=== PATIENT | male | born 1990 | race Caucasian/White ===

== ENCOUNTER 2017-12-19 06:25 | Emergency (ER) | payer OTHER ==
[~2017-12-19] VITALS: Ht 170.2 cm; Wt 66.1 kg
[2017-12-19 06:30] VITALS: BP 122/73; PULSE 56; RESP 16; TEMP 97.6; O2SAT 100
[2017-12-19 07:03] VITALS: BP 121/79; PULSE 57; RESP 16; TEMP 98; O2SAT 100
[2017-12-19 07:08] LABS: AUTOMATED NEUTROPHIL # 3.1 TH/MM3 (1.8-7.7); BASOPHIL # 0.1 TH/MM3 (0-0.2); BASOPHIL % 1.4 % (0.0-2.0); EOSINOPHIL # 0.1 TH/MM3 (0-0.4); EOSINOPHIL % 2.7 % (0.0-4.0); HEMATOCRIT 43.7 % (39.0-51.0); HEMOGLOBIN 14.9 GM/DL (13.0-17.0); LYMPH % 33.6 % (9.0-44.0); LYMPHOCYTE # 1.8 TH/MM3 (1.0-4.8); MEAN CELL VOLUME 88.7 FL (80.0-100.0); MEAN CORPUSCULAR HEMOGLOBIN 30.2 PG (27.0-34.0); MEAN PLATELET VOLUME 9.4 FL (7.0-11.0); MONO % 6.4 % (0.0-8.0); MONOCYTE # 0.3 TH/MM3 (0-0.9); NEUT % 55.9 % (16.0-70.0); PLATELET COUNT 204 TH/MM3 (150-450); RED BLOOD COUNT 4.93 MIL/MM3 (4.50-5.90); WHITE BLOOD COUNT 5.4 TH/MM3 (4.0-11.0)
--- NOTE | 2017-12-19 07:21 | PD ---
HPI Chief Complaint: GI Complaint Time Seen by Provider: 07:15 Travel History International Travel<30 days: No Contact w/Intl Traveler<30days: No Traveled to known affect area: No History of Present Illness HPI 27yo M with PMH of PTSD presents to the ED with c/o nausea, vomiting and diarrhea since last night. Pt said he feels his abdominal muscles tighten when he is vomiting and otherwise did not really have pain. Denies any fever, chest pain, sob, dysuria, hematuria. Pt said his daughter was sick recently. 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 SKIN: Focused skin assessment warm/dry. HEAD: Atraumatic. Normocephalic. EYES: Pupils equal and round. No scleral icterus. No injection or drainage. ENT: No nasal bleeding or discharge. Mucous membranes pink and moist. NECK: Trachea midline. No JVD. CARDIOVASCULAR: Regular rate and rhythm. No murmur appreciated. RESPIRATORY: No accessory muscle use. Clear to auscultation. Breath sounds equal bilaterally. GASTROINTESTINAL: Abdomen soft, non-tender, nondistended. No rebound tenderness or guarding. MUSCULOSKELETAL: No obvious deformities. No clubbing. No cyanosis. No edema. NEUROLOGICAL: Awake and alert. No obvious cranial nerve deficits. Motor grossly within normal limits. Normal speech. PSYCHIATRIC: Appropriate mood and affect; insight and judgment normal. Data Data Last Documented VS Vital Signs Date Time Temp Pulse Resp B/P (MAP) Pulse Ox O2 Delivery O2 Flow Rate FiO2 12/19/17 07:03 98.0 57 16 121/79 (93) 100 Room Air Orders Orders Complete Blood Count With Diff (12/19/17 06:57) Basic Metabolic Panel (Bmp) (12/19/17 06:57) Ondansetron Odt (Zofran Odt) (12/19/17 07:30) Sodium Chlor 0.9% 1000 Ml Inj (Ns 1000 M (12/19/17 07:30) Lipase (12/19/17 07:00) Labs Laboratory Tests Test 12/19/17 07:00 White Blood Count 5.4 TH/MM3 Red Blood Count 4.93 MIL/MM3 Hemoglobin 14.9 GM/DL Hematocrit 43.7 % Mean Corpuscular Volume 88.7 FL Mean Corpuscular Hemoglobin 30.2 PG Mean Corpuscular Hemoglobin Concent 34.0 % Red Cell Distribution Width 13.0 % Platelet Count 204 TH/MM3 Mean Platelet Volume 9.4 FL Neutrophils (%) (Auto) 55.9 % Lymphocytes (%) (Auto) 33.6 % Monocytes (%) (Auto) 6.4 % Eosinophils (%) (Auto) 2.7 % Basophils (%) (Auto) 1.4 % Neutrophils # (Auto) 3.1 TH/MM3 Lymphocytes # (Auto) 1.8 TH/MM3 Monocytes # (Auto) 0.3 TH/MM3 Eosinophils # (Auto) 0.1 TH/MM3 Basophils # (Auto) 0.1 TH/MM3 CBC Comment DIFF FINAL Differential Comment Blood Urea Nitrogen 13 MG/DL Creatinine 1.00 MG/DL Random Glucose 110 MG/DL Calcium Level 8.9 MG/DL Sodium Level 140 MEQ/L Potassium Level 3.7 MEQ/L Chloride Level 105 MEQ/L Carbon Dioxide Level 27.8 MEQ/L Anion Gap 7 MEQ/L Estimat Glomerular Filtration Rate 88 ML/MIN Lipase 170 U/L [facility] Medical Decision Making Medical Screen Exam Complete: Yes Emergency Medical Condition: Yes Differential Diagnosis Acute gastroenteritis vs. dehydration vs. electrolyte abnormality vs. pancreatitis vs. gastritis Narrative Course 27yo well appearing male with vomiting and diarrhea since last night. Labs were already drawn and pt was given NS IVF prior to evaluation. No abdominal tenderness on exam. Labs reviewed, no leukocytosis. H/H normal. BMP unremarkable. Lipase normal. Pt given zofran and said nausea has been resolved. Pt is tolerating PO. Return precautions given. Diagnosis Primary Impression: Gastroenteritis Patient Instructions: General Instructions Departure Forms: Tests/Procedures Additional Instructions: Please follow up with your primary care physician in 2-3 days. Return to the ED if symptoms worsen. Med/Other Pt SpecificInfo: Prescription(s) given Scripts Ondansetron Odt (Zofran Odt) 4 Mg Tab 4 MG SL Q12HR Y for Nausea/Vomiting, #6 TAB 0 Refills Prov: Eliana Yee DO 12/19/17 Disposition: 01 DISCHARGE HOME Condition: Stable Eliana Yee DO Dec 19, 2017 07:21
[2017-12-19 07:25] LABS: CALCIUM 8.9 MG/DL (8.5-10.1)
[2017-12-19 07:26] LABS: BICARBONATE 27.8 MEQ/L (21.0-32.0)
[2017-12-19] MEDS ORDERED: ONDANSETRON ODT 4 MG TAB PO ONE (07:30)
[2017-12-19] MEDS ORDERED: SODIUM CHLOR 0.9% 1000 ML INJ 1,000 ML IV ONE (07:30)
[2017-12-19] MEDS ORDERED: ZOFR4TAB3 SL (08:10)
== END 2017-12-19 08:33 | disposition home or self-care (01) ==
LOC: PHED 06:25
DX: K52.9 Noninfective gastroenteritis and colitis, unspecified (principal); R11.2 Nausea with vomiting, unspecified; F43.10 Post-traumatic stress disorder, unspecified
CPT/HCPCS: 80048; 83690; 85025; 96360; 99284; J7030